=== PATIENT | female | born 1990 | race Caucasian/White ===

== ENCOUNTER 2019-09-04 15:09 | Emergency (ER) | payer SELFPAY ==
[~2019-09-04] VITALS: Ht 154.9 cm; Wt 108.5 kg
[2019-09-04 15:12] VITALS: BP 137/87
--- NOTE | 2019-09-04 15:29 | NUR ---
AMB TO BED 07 WITH STEADY GAIT
--- NOTE | 2019-09-04 16:00 | NUR ---
PT C/O LEFT SIDED BODY WEAKNESS 1 DAY PTC NO PREVIOUS ILLNESSES NOR MEDICATION BEING TAKEN ,DENIES N/V . PT ALERT , AFIBRILE , AMBULATORY WITH STEADY GAIT.NEGATIVE NEUROLOGICAL DEFICIT NOTED ON PE.
--- NOTE | 2019-09-04 16:57 | NUR ---
Dr. De La Garza is evaluating the patient at bedside.
[2019-09-04 17:21] VITALS: BP 130/85
--- NOTE | 2019-09-04 17:21 | NUR ---
Patient discharged with v/s stable. Written and verbal after care instructions given and explained regarding anxiety and panic attack. Patient alert, oriented and verbalized understanding of instructions. Ambulatory with steady gait. All questions addressed prior to discharge. ID band removed. Patient advised to follow up with PMD. Rx of atarax given. Patient educated on indication of medication including possible reaction and side effects. Opportunity to ask questions provided and answered.
== END 2019-09-04 17:21 | disposition home or self-care (01) ==
LOC: MED 15:09
DX: F41.9 Anxiety disorder, unspecified (principal); J45.909 Unspecified asthma, uncomplicated
CPT/HCPCS: 81002; 81025; 99283